=== PATIENT | female | born 1995 | race Caucasian/White ===

== ENCOUNTER 2016-02-13 00:41 | Emergency (ER) | payer OTHER ==
--- NOTE | 2016-02-13 01:13 | ED CLINICAL REPORT ---
Clinical Report - Physicians/Mid Levels [facility] [address] [place] [address] 02/13/2016 0:44 Patient: JACKIE KRUEGER Time Seen: 01:02 Feb 13 2016. Arrived- By private vehicle. Historian- patient. CPT: ER phys charges level 3 (#[id number]). HISTORY OF PRESENT ILLNESS Chief Complaint: DENTAL PAIN. This started today This started today. ( Patient states she went to the dentist yesterday and was given antibiotics for a broken tooth. She states she was given antibiotic she is allergic to so she hasn't taken it. She reports pain and swelling.). She has a dental appointment scheduled. and is still present. Pain described as moderate. The patient has had toothache. Similar symptoms previously: None. Recent medical care: The patient was seen recently at another facility in a clinic (today). Seen for similar symptoms. Antibiotic was prescribed. Diagnosed as Dental fx. REVIEW OF SYSTEMS No fever, cough, difficulty breathing, chest pain or nausea. No diarrhea, abdominal pain, joint pain, skin rash or enlarged lymph nodes. All systems otherwise negative, except as recorded above. PAST HISTORY See nurses notes. SOCIAL HISTORY Never smoker. No alcohol use or drug use. ADDITIONAL NOTES The nursing notes have been reviewed. PHYSICAL EXAM Vital Signs: 02/13/2016 00:52 BP: 129/91. HR: 87. RR: 20. O2 saturation: 99%. Temp: 98.3 F. Pain level now: 5/10. Appearance: Alert. Patient in mild distress. ENT: Moderate, localized dental decay (lower left first molar). Moderate dental tenderness of a single tooth (lower left first molar). Pharynx normal. Lips normal. Gums normal. Uvula midline. Neck: No adenopathy. CVS: Normal heart rate and rhythm. Heart sounds normal. Pulses normal. No cardiac murmur. Skin: No rash. Extremities: Extremities nontender. Neuro: Oriented X 3. No motor deficit. No sensory deficit. PROGRESS AND PROCEDURES Patient/family counseled. Disposition: Discharged. Condition: stable. CLINICAL IMPRESSION Moderate dental pain. INSTRUCTIONS (Stop amoxicillin). Warnings: Further evaluation is necessary. Prescription Medications: Hydrocodone/APAP 5mg/325mg: take 1 to 2 orally every 6 hours as needed for pain. Dispense fifteen (15). No refills. Cleocin 300 mg: take 1 capsule orally every 6 hours for 7 days. No refills. Substitution is permissible. Follow-up: Follow up with a dentist in two weeks. Call for an appointment. Understanding of the discharge instructions verbalized by patient. (Electronically signed by Florin Ruelas MD 02/15/2016 11:47)
--- NOTE | 2016-02-13 01:13 | ED NURSING NOTES ---
Clinical Report - Nurses [facility] [address] [place] [place] [address] 02/13/2016 0:44 Patient: JACKIE KRUEGER TRIAGE Triage time 00:52 Feb 13 2016. Acuity: LEVEL 4. Chief Complaint: LEFT LOWER TOOTHACHE and CHIPPED TOOTH. 00:56 02/13/16. SEPSIS SCREEN: Sepsis Screen: negative. Negative (no infection suspected/documented). --00:56 Miriam Blanc 00:52 02/13/16. BP: 129/91. HR: 87. RR: 20. O2 saturation: 99%. Temp: 98.3 F (oral). Pain level now: 5/10. --00:56 Miriam Blanc. Weight: 86.1 kg stated. Height/Length: 66 inches Per Patient. BMI: 30.7. --00:53 Miriam Blanc. Medications None. --00:54 Miriam Blanc. Allergies Amoxicillin. --00:54 Miriam Blanc. Medication/allergy information source: the patient. --00:56 Miriam Blanc. History Arrived by private vehicle. Historian: patient. Accompanied by friend. This started today. ( Patient states she went to the dentist yesterday and was given antibiotics for a broken tooth. She states she was given antibiotic she is allergic to so she hasn't taken it. She reports pain and swelling.). She has a dental appointment scheduled. 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 PAST MEDICAL HX: Immunizations: up-to-date. Last normal menstrual period- Irregular normally, November was her last period. SOCIAL HX: Never smoker. No alcohol use or drug use. No infectious disease exposure. ABUSE ASSESSMENT: No report of abuse. FALL RISK ASSESSMENT: Fall risk assessment completed. No fall risk identified. NUTRITIONAL RISK ASSESSMENT: The nutritional risk assessment revealed no deficiencies. FUNCTIONAL ASSESSMENT: Functional assessment: no impairments noted. LEARNING NEEDS ASSESSMENT: The learning needs assessment revealed no barriers. SKIN INTEGRITY ASSESSMENT: Skin integrity risk assessment completed. No skin integrity risk identified. --00:56 Miriam Blanc. PROBLEMS: Asthma. --00:54 Miriam Blanc. ADDITIONAL SURGERIES: no known surgeries. Interventions ID band on patient. To treatment room. --00:56 Miriam Blanc. PHYSICAL ASSESSMENT Ambulatory to room. GENERAL / NEURO / PSYCH: Alert. Oriented X 4. Appears in no acute distress. HEENT: Dental tenderness. Dental decay. Mucous membranes are pink. RESPIRATORY: Respirations not labored. SKIN: Skin is warm and dry. --00:57 Miriam Blanc. NURSING PROGRESS NOTES Warming measures: blanket applied. Reassurance given to the patient. Two patient identifiers checked. Call light placed in reach. Side rails up x 1. Bed placed in lowest position. Brakes of bed on. Patient ready for evaluation- chart flagged. --00:57 iMriam Blanc. DISPOSITION / DISCHARGE Departure time: 0122. Condition at departure: unchanged. No learning barriers present. Discharge instructions provided and reviewed with the patient. Reviewed medication(s). Prescription(s) given to the patient (cleocin, hydrocodone/apap). Patient verbalized understanding. Written instructions provided in Slovak. The patient was discharged by the physician. She was discharged home and accompanied by psychology technician. She left the Emergency Department ambulatory and via private vehicle. Blueprint Machine Operator driving. Medication list reviewed and validated with the patient. --01:24 Anju Stokes R.N. 01:22 02/13/16. BP: deferred. HR: deferred. RR: deferred. O2 saturation: deferred. Temp: deferred. Pain level now deferred. --01:24 Anju Stokes R.N. Locked/Released at 02/13/2016 1:24 by Anju Stokes R.N.
--- NOTE | 2016-02-13 01:13 | ED NURSING NOTES ---
Clinical Report - Nurses [facility] [address] [place] [address] 02/13/2016 0:44 Patient: JACKIE KRUEGER TRIAGE Triage time 00:52 Feb 13 2016. Acuity: LEVEL 4. Chief Complaint: LEFT LOWER TOOTHACHE and CHIPPED TOOTH. 00:56 02/13/16. SEPSIS SCREEN: Sepsis Screen: negative. Negative (no infection suspected/documented). --00:56 Miriam Blanc 00:52 02/13/16. BP: 129/91. HR: 87. RR: 20. O2 saturation: 99%. Temp: 98.3 F (oral). Pain level now: 5/10. --00:56 Miriam Blanc. Weight: 86.1 kg stated. Height/Length: 66 inches Per Patient. BMI: 30.7. --00:53 Miriam Blanc. Medications None. --00:54 Miriam Blanc. Allergies Amoxicillin. --00:54 Miriam Blanc. Medication/allergy information source: the patient. --00:56 Miriam Blanc. History Arrived by private vehicle. Historian: patient. Accompanied by friend. This started today. ( Patient states she went to the dentist yesterday and was given antibiotics for a broken tooth. She states she was given antibiotic she is allergic to so she hasn't taken it. She reports pain and swelling.). She has a dental appointment scheduled. 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 PAST MEDICAL HX: Immunizations: up-to-date. Last normal menstrual period- Irregular normally, November was her last period. SOCIAL HX: Never smoker. No alcohol use or drug use. No infectious disease exposure. ABUSE ASSESSMENT: No report of abuse. FALL RISK ASSESSMENT: Fall risk assessment completed. No fall risk identified. NUTRITIONAL RISK ASSESSMENT: The nutritional risk assessment revealed no deficiencies. FUNCTIONAL ASSESSMENT: Functional assessment: no impairments noted. LEARNING NEEDS ASSESSMENT: The learning needs assessment revealed no barriers. SKIN INTEGRITY ASSESSMENT: Skin integrity risk assessment completed. No skin integrity risk identified. --00:56 Miriam Blanc. PROBLEMS: Asthma. --00:54 Miriam Blanc. ADDITIONAL SURGERIES: no known surgeries. Interventions ID band on patient. To treatment room. --00:56 Miriam Blanc. PHYSICAL ASSESSMENT Ambulatory to room. GENERAL / NEURO / PSYCH: Alert. Oriented X 4. Appears in no acute distress. HEENT: Dental tenderness. Dental decay. Mucous membranes are pink. RESPIRATORY: Respirations not labored. SKIN: Skin is warm and dry. --00:57 Miriam Blanc. NURSING PROGRESS NOTES Warming measures: blanket applied. Reassurance given to the patient. Two patient identifiers checked. Call light placed in reach. Side rails up x 1. Bed placed in lowest position. Brakes of bed on. Patient ready for evaluation- chart flagged. --00:57 Miriam Blanc. DISPOSITION / DISCHARGE Departure time: 0122. Condition at departure: unchanged. No learning barriers present. Discharge instructions provided and reviewed with the patient. Reviewed medication(s). Prescription(s) given to the patient (cleocin, hydrocodone/apap). Patient verbalized understanding. Written instructions provided in Greek. The patient was discharged by the physician. She was discharged home and accompanied by project management professional. She left the Emergency Department ambulatory and via private vehicle. Polish Maker driving. Medication list reviewed and validated with the patient. --01:24 Anju Stokes R.N. 01:22 02/13/16. BP: deferred. HR: deferred. RR: deferred. O2 saturation: deferred. Temp: deferred. Pain level now deferred. --01:24 Anju Stokes R.N. Locked/Released at 02/13/2016 1:24 by Anju Stokes R.N.
--- NOTE | 2016-02-13 01:13 | ED CLINICAL REPORT ---
Clinical Report - Physicians/Mid Levels [facility] [address] [place] [address] 02/13/2016 0:44 Patient: JACKIE KRUEGER Time Seen: 01:02 Feb 13 2016. Arrived- By private vehicle. Historian- patient. CPT: ER phys charges level 3 (#[id number]). HISTORY OF PRESENT ILLNESS Chief Complaint: DENTAL PAIN. This started today This started today. ( Patient states she went to the dentist yesterday and was given antibiotics for a broken tooth. She states she was given antibiotic she is allergic to so she hasn't taken it. She reports pain and swelling.). She has a dental appointment scheduled. and is still present. Pain described as moderate. The patient has had toothache. Similar symptoms previously: None. Recent medical care: The patient was seen recently at another facility in a clinic (today). Seen for similar symptoms. Antibiotic was prescribed. Diagnosed as Dental fx. REVIEW OF SYSTEMS No fever, cough, difficulty breathing, chest pain or nausea. No diarrhea, abdominal pain, joint pain, skin rash or enlarged lymph nodes. All systems otherwise negative, except as recorded above. PAST HISTORY See nurses notes. SOCIAL HISTORY Never smoker. No alcohol use or drug use. ADDITIONAL NOTES The nursing notes have been reviewed. PHYSICAL EXAM Vital Signs: 02/13/2016 00:52 BP: 129/91. HR: 87. RR: 20. O2 saturation: 99%. Temp: 98.3 F. Pain level now: 5/10. Appearance: Alert. Patient in mild distress. ENT: Moderate, localized dental decay (lower left first molar). Moderate dental tenderness of a single tooth (lower left first molar). Pharynx normal. Lips normal. Gums normal. Uvula midline. Neck: No adenopathy. CVS: Normal heart rate and rhythm. Heart sounds normal. Pulses normal. No cardiac murmur. Skin: No rash. Extremities: Extremities nontender. Neuro: Oriented X 3. No motor deficit. No sensory deficit. PROGRESS AND PROCEDURES Patient/family counseled. Disposition: Discharged. Condition: stable. CLINICAL IMPRESSION Moderate dental pain. INSTRUCTIONS (Stop amoxicillin). Warnings: Further evaluation is necessary. Prescription Medications: Hydrocodone/APAP 5mg/325mg: take 1 to 2 orally every 6 hours as needed for pain. Dispense fifteen (15). No refills. Cleocin 300 mg: take 1 capsule orally every 6 hours for 7 days. No refills. Substitution is permissible. Follow-up: Follow up with a dentist in two weeks. Call for an appointment. Understanding of the discharge instructions verbalized by patient. (Electronically signed by Florin Ruelas MD 02/15/2016 11:47)
--- NOTE | 2016-02-15 11:47 | ED DISCHARGE INSTRUCTIONS ---
Patient: JACKIE KRUEGER General Instructions [facility] VisitID: [id number] [place] [address] 20y, F Registration Date/Time: 02/13/2016 Moderate dental pain. INSTRUCTIONS (Stop amoxicillin). Warnings: Further evaluation is necessary. Prescription Medications: Hydrocodone/APAP 5mg/325mg: take 1 to 2 orally every 6 hours as needed for pain. Dispense fifteen (15). No refills. Cleocin 300 mg: take 1 capsule orally every 6 hours for 7 days. No refills. Substitution is permissible. Follow-up: Follow up with a dentist in two weeks. Call for an appointment. Understanding of the discharge instructions verbalized by patient. ADDITIONAL INFORMATION Dental Pain A crack or cavity in the tooth, which exposes the sensitive inner area of the tooth can cause tooth pain. An infection in the gum or the root of the tooth can cause pain and swelling. The pain is often made worse by drinking hot or cold fluids, or biting on hard foods. Pain may spread from the tooth to the ear or jaw on the same side. Home Care: Avoid hot and cold foods and liquids since your tooth may be sensitive to temperature changes. If your tooth is chipped or cracked, or if there is a large open cavity, apply OIL OF CLOVES (available ievu-kva-xufyydp in drug stores) directly to the tooth to reduce pain. Some pharmacies carry an snxf-uuc-pivcllg "toothache kit." This contains a paste, which can be applied over the exposed tooth to decrease sensitivity. A cold pack on your jaw over the sore area may help reduce pain. You may use acetaminophen (Tylenol) or ibuprofen (Motrin, Advil) to control pain, unless another medicine was prescribed. [ NOTE: If you have chronic liver or kidney disease or ever had a stomach ulcer or GI bleeding, talk with your doctor before using these medicines.] If you have signs of an infection, an antibiotic will be given. Take it as directed. Follow-Up as directed with a dentist. Your pain may go away with the treatment given. However, only a dentist can fully evaluate and treat the cause and prevent the pain from coming back again. TOOTHACHE IS A SIGN OF DISEASE IN YOUR TOOTH AND SHOULD BE EXAMINED AND TREATED BY A DENTIST. Get Prompt Medical Attention if any of the following occur: Your face becomes swollen or red Pain worsens or spreads to the neck Fever over 100.4 F (38.0 C) Unusual drowsiness; headache or stiff neck; weakness or fainting Pus drains from the tooth Difficulty swallowing or breathing Dental Cavity A dental cavity is a pit or crater in the enamel surface of the tooth. This exposes the sensitive inner layer of the tooth and causes pain. If untreated, the cavity will get bigger and may cause an infection or abscess in the root of the tooth. An infection in the tooth is a much more serious problem and may require a root canal or removal of the entire tooth. The tooth pain may be made worse by drinking hot or cold fluids. It may spread from the tooth to the ear or jaw on the same side. Home Care: Avoid hot and cold foods, and liquids since your tooth may be sensitive to temperature changes. If your tooth is chipped or cracked, or if there is a large open cavity, apply OIL OF CLOVES (available ebfy-hrc-kfwrguu in drug stores) directly to the tooth to reduce pain. Some pharmacies carry an jyns-zdx-aisexfg "toothache kit." This contains oil of cloves and a paste, which can be applied over the exposed tooth to decrease sensitivity. An ice pack on your jaw over the sore area may help to reduce pain. You may use acetaminophen (Tylenol) or ibuprofen (Motrin, Advil) to control pain, unless another pain medicine was prescribed. [ NOTE: If you have liver disease or ever had a stomach ulcer, talk with your doctor before using these medicines.] If you have signs of an infection, an antibiotic will be given. Take it as directed. Follow-Up with your dentist as directed. Although your pain may go away with the treatment given, only a dentist can fully evaluate and treat this problem to prevent further tooth damage. Get Prompt Medical Attention if any of the following occur: Redness or swelling of the face Pain worsens or spreads to the neck Fever over 100.5 F (38C) Unusual drowsiness; headache or stiff neck; weakness or fainting Pus drains from the tooth or gum Difficulty swallowing or breathing Dental Abscess A dental abscess is an infection of the tooth socket. It often starts with a crack or cavity in the tooth. A pocket of pus forms between the tooth and the bone. The infection causes pain and swelling of the gum, cheek or jaw. The pain is often made worse by drinking hot or cold fluids, or biting on hard foods. Pain may be felt in the facial sinus or in the ear. A severe infection can interfere with swallowing and breathing. In the emergency department or clinic, you will be started on an antibiotic. However, final treatment requires drainage of the pus. This can be done by removing the tooth or performing a root canal. A root canal is done by an oral surgeon and involves drilling an opening in the tooth to drain the pus. After the infection has healed, a crown is placed over the tooth. Home care The following guidelines will help you care for your abscess at home: Avoid hot and cold foods and liquids since your tooth may be sensitive to temperature changes. If your tooth is chipped or cracked, or if there is a large open cavity, applyoil of cloves(available dcdq-rjb-ilndrqd in drug stores) directly to the tooth to reduce pain. Some pharmacies carry an xtss-xpa-fqzjzww "toothache kit". This contains oil of cloves and a paste, which can be applied over the exposed tooth to decrease sensitivity. Apply an ice pack (ice cubes in a plastic bag, wrapped in a towel) over the injured area for 20 minutes every 12 hours the first day for pain relief. Continue this 34 times a day until the pain and swelling goes away. You may use acetaminophen or ibuprofen to control pain, unless another medicine was prescribed. If you have chronic liver or kidney disease or ever had a stomach ulcer or GI bleeding, talk with your doctor before using these medicines. An antibiotic will be prescribed. Take it as directed until completed, even if you are feeling better sooner. Follow-up care Follow up as directed with a dentist or oral surgeon. Even though your pain may improve with the treatment given today, only a dentist or oral surgeon can provide full treatment for this problem. When to seek medical care Get prompt medical attention or contact your doctor if any of the following occur: Your face or eyelid becomes swollen or red Pain worsens or spreads to the neck Fever over 100.4F (38.0C) Unusual drowsiness; headache or stiff neck; weakness, or fainting Pus drains from the gum or tooth Difficulty talking, swallowing or breathing Unable to open your mouth wide You have been given the following additional information: Dental Pain Dental Cavity Tooth Abscess (Electronically signed by Florin Ruelas MD 02/15/2016 11:47)
--- NOTE | 2016-02-15 11:47 | ED MED RECONCILIATION SUMMARY ---
Patient: JACKIE KRUEGER Medication Reconciliation Report [facility] VisitID: [id number] [place] [address] 20y, F Registration Date/Time: 02/13/2016 Weight: 86.1 kg Height/Length: 66 in. BMI: 30.7 ALLERGIES: Amoxicillin The patient's Home Medications are listed below: NONE. The source(s) of the original Home Medication information: patient The following Medications were given to the patient in the Emergency Department: None. The following Medications were prescribed to the patient: Hydrocodone/APAP 5mg/325mg: take 1 to 2 orally every 6 hours as needed for pain. Dispense fifteen (15). No refills. -- Florin Ruelas MD Cleocin 300 mg: take 1 capsule orally every 6 hours for 7 days. No refills. Substitution is permissible. -- Florin Ruelas MD
--- NOTE | 2016-02-15 11:47 | ED DISCHARGE INSTRUCTIONS ---
Patient: JACKIE KRUEGER General Instructions [facility] VisitID: [id number] [place] [address] 20y, F Registration Date/Time: 02/13/2016 Moderate dental pain. INSTRUCTIONS (Stop amoxicillin). Warnings: Further evaluation is necessary. Prescription Medications: Hydrocodone/APAP 5mg/325mg: take 1 to 2 orally every 6 hours as needed for pain. Dispense fifteen (15). No refills. Cleocin 300 mg: take 1 capsule orally every 6 hours for 7 days. No refills. Substitution is permissible. Follow-up: Follow up with a dentist in two weeks. Call for an appointment. Understanding of the discharge instructions verbalized by patient. ADDITIONAL INFORMATION Dental Pain A crack or cavity in the tooth, which exposes the sensitive inner area of the tooth can cause tooth pain. An infection in the gum or the root of the tooth can cause pain and swelling. The pain is often made worse by drinking hot or cold fluids, or biting on hard foods. Pain may spread from the tooth to the ear or jaw on the same side. Home Care: Avoid hot and cold foods and liquids since your tooth may be sensitive to temperature changes. If your tooth is chipped or cracked, or if there is a large open cavity, apply OIL OF CLOVES (available mldw-veu-cznpwzo in drug stores) directly to the tooth to reduce pain. Some pharmacies carry an rfae-nzw-guyrtjc "toothache kit." This contains a paste, which can be applied over the exposed tooth to decrease sensitivity. A cold pack on your jaw over the sore area may help reduce pain. You may use acetaminophen (Tylenol) or ibuprofen (Motrin, Advil) to control pain, unless another medicine was prescribed. [ NOTE: If you have chronic liver or kidney disease or ever had a stomach ulcer or GI bleeding, talk with your doctor before using these medicines.] If you have signs of an infection, an antibiotic will be given. Take it as directed. Follow-Up as directed with a dentist. Your pain may go away with the treatment given. However, only a dentist can fully evaluate and treat the cause and prevent the pain from coming back again. TOOTHACHE IS A SIGN OF DISEASE IN YOUR TOOTH AND SHOULD BE EXAMINED AND TREATED BY A DENTIST. Get Prompt Medical Attention if any of the following occur: Your face becomes swollen or red Pain worsens or spreads to the neck Fever over 100.4 F (38.0 C) Unusual drowsiness; headache or stiff neck; weakness or fainting Pus drains from the tooth Difficulty swallowing or breathing Dental Cavity A dental cavity is a pit or crater in the enamel surface of the tooth. This exposes the sensitive inner layer of the tooth and causes pain. If untreated, the cavity will get bigger and may cause an infection or abscess in the root of the tooth. An infection in the tooth is a much more serious problem and may require a root canal or removal of the entire tooth. The tooth pain may be made worse by drinking hot or cold fluids. It may spread from the tooth to the ear or jaw on the same side. Home Care: Avoid hot and cold foods, and liquids since your tooth may be sensitive to temperature changes. If your tooth is chipped or cracked, or if there is a large open cavity, apply OIL OF CLOVES (available nyrh-pyy-qarbueu in drug stores) directly to the tooth to reduce pain. Some pharmacies carry an ppfl-sln-efdmqxw "toothache kit." This contains oil of cloves and a paste, which can be applied over the exposed tooth to decrease sensitivity. An ice pack on your jaw over the sore area may help to reduce pain. You may use acetaminophen (Tylenol) or ibuprofen (Motrin, Advil) to control pain, unless another pain medicine was prescribed. [ NOTE: If you have liver disease or ever had a stomach ulcer, talk with your doctor before using these medicines.] If you have signs of an infection, an antibiotic will be given. Take it as directed. Follow-Up with your dentist as directed. Although your pain may go away with the treatment given, only a dentist can fully evaluate and treat this problem to prevent further tooth damage. Get Prompt Medical Attention if any of the following occur: Redness or swelling of the face Pain worsens or spreads to the neck Fever over 100.5 F (38C) Unusual drowsiness; headache or stiff neck; weakness or fainting Pus drains from the tooth or gum Difficulty swallowing or breathing Dental Abscess A dental abscess is an infection of the tooth socket. It often starts with a crack or cavity in the tooth. A pocket of pus forms between the tooth and the bone. The infection causes pain and swelling of the gum, cheek or jaw. The pain is often made worse by drinking hot or cold fluids, or biting on hard foods. Pain may be felt in the facial sinus or in the ear. A severe infection can interfere with swallowing and breathing. In the emergency department or clinic, you will be started on an antibiotic. However, final treatment requires drainage of the pus. This can be done by removing the tooth or performing a root canal. A root canal is done by an oral surgeon and involves drilling an opening in the tooth to drain the pus. After the infection has healed, a crown is placed over the tooth. Home care The following guidelines will help you care for your abscess at home: Avoid hot and cold foods and liquids since your tooth may be sensitive to temperature changes. If your tooth is chipped or cracked, or if there is a large open cavity, applyoil of cloves(available plao-bnv-moakmuu in drug stores) directly to the tooth to reduce pain. Some pharmacies carry an tdoq-eeg-spotunh "toothache kit". This contains oil of cloves and a paste, which can be applied over the exposed tooth to decrease sensitivity. Apply an ice pack (ice cubes in a plastic bag, wrapped in a towel) over the injured area for 20 minutes every 12 hours the first day for pain relief. Continue this 34 times a day until the pain and swelling goes away. You may use acetaminophen or ibuprofen to control pain, unless another medicine was prescribed. If you have chronic liver or kidney disease or ever had a stomach ulcer or GI bleeding, talk with your doctor before using these medicines. An antibiotic will be prescribed. Take it as directed until completed, even if you are feeling better sooner. Follow-up care Follow up as directed with a dentist or oral surgeon. Even though your pain may improve with the treatment given today, only a dentist or oral surgeon can provide full treatment for this problem. When to seek medical care Get prompt medical attention or contact your doctor if any of the following occur: Your face or eyelid becomes swollen or red Pain worsens or spreads to the neck Fever over 100.4F (38.0C) Unusual drowsiness; headache or stiff neck; weakness, or fainting Pus drains from the gum or tooth Difficulty talking, swallowing or breathing Unable to open your mouth wide You have been given the following additional information: Dental Pain Dental Cavity Tooth Abscess (Electronically signed by Florin Ruelas MD 02/15/2016 11:47)
--- NOTE | 2016-02-15 11:47 | ED MAR SUMMARY ---
..... Medication Administration Record [facility] [address] [place], [place] [id number] Patient: JACKIE KRUEGER Visit ID: [id number] 20y, F Weight: 86.1 kg Height/Length: 66 in BMI: 30.7 ALLERGIES: Amoxicillin
--- NOTE | 2016-02-15 11:47 | ED MAR SUMMARY ---
..... Medication Administration Record [facility] [address] [place] [place], [place] [id number] Patient: JACKIE KRUEGER Visit ID: [id number] 20y, F Weight: 86.1 kg Height/Length: 66 in BMI: 30.7 ALLERGIES: Amoxicillin
--- NOTE | 2016-02-15 11:47 | ED MED RECONCILIATION SUMMARY ---
Patient: JACKIE KRUEGER Medication Reconciliation Report [facility] VisitID: [id number] [place] [address] 20y, F Registration Date/Time: 02/13/2016 Weight: 86.1 kg Height/Length: 66 in. BMI: 30.7 ALLERGIES: Amoxicillin The patient's Home Medications are listed below: NONE. The source(s) of the original Home Medication information: patient The following Medications were given to the patient in the Emergency Department: None. The following Medications were prescribed to the patient: Hydrocodone/APAP 5mg/325mg: take 1 to 2 orally every 6 hours as needed for pain. Dispense fifteen (15). No refills. -- Florin Ruelas MD Cleocin 300 mg: take 1 capsule orally every 6 hours for 7 days. No refills. Substitution is permissible. -- Florin Ruelas MD
== END 2016-02-13 01:22 | disposition home or self-care (01) ==
LOC: ED SRH 00:41
DX: K08.89 Other specified disorders of teeth and supporting structures (principal); Z88.1 Allergy status to other antibiotic agents